=== PATIENT | male | born 1985 | race Caucasian/White ===

== ENCOUNTER 2018-02-25 20:46 | Emergency (ER) | payer OTHER ==
[~2018-02-25] VITALS: Ht 170.2 cm; Wt 83.9 kg
[~2018-02-25 20:46] MED LIST: NOHOMEMEDICATIONS
[2018-02-25] MEDS ORDERED: ZOLOFT (21:00)
[2018-02-25] MEDS ORDERED: RISPERDAL0.5 MG (21:01)
[2018-02-25 21:02] LABS: URINE BILIRUBIN NEGATIVE (Negative); URINE BLOOD NEGATIVE (Negative); URINE CLARITY CLEAR; URINE COLOR STRAW; URINE GLUCOSE-RANDOM NEGATIVE (Negative); URINE KETONES NEGATIVE (Negative); URINE LEUKOCYTES-REFLEX NEGATIVE (Negative); URINE NITRITE-REFLEX NEGATIVE (Negative); URINE PROTEIN NEGATIVE (Negative); URINE SPECIFIC GRAVITY <= 1.005 (1.005-1.030); URINE UROBILINOGEN 0.2 E.U./dl (0.2-1.0)
[2018-02-25 21:09] LABS: ABSOLUTE EOSINOPHILS 0.1 thou/uL (0.0-0.7); ABSOLUTE LYMPHOCYTES 2.6 thou/uL (0.8-5.3); ABSOLUTE MONOCYTES 0.5 thou/uL (0.0-1.2); ABSOLUTE NEUTROPHILS 4.7 thou/uL (1.6-8.1); BASOPHILS 0.3 %; EOSINOPHILS 1.1 %; HEMATOCRIT 42.9 % (42.0-52.0); HEMOGLOBIN 14.6 gm/dL (14.0-18.0); LYMPHOCYTES 32.4 %; MCH 31.8 pg (26.0-34.0); MCHC 34.1 g/dL (28.0-37.0); MCV 93.4 fL (80.0-100.0); MONOCYTES 6.8 %; MPV 6.4 fl. (7.2-11.1); NUCLEATED RBCS 0 /100WBC; PLATELET COUNT* 322 thou/uL (150-400); POLYS 59.4 %; RBC 4.59 mil/uL (4.50-6.00); RDW-CV 13.5 % (10.5-14.5); WBC 7.9 thou/uL (4.0-11.0)
[2018-02-25 21:11] LABS: AMP/METHAMP Negative (Negative); BARBITURATES Negative (Negative); BENZODIAZEPINES Negative (Negative); COCAINE Negative (Negative); METHADONE Negative (Negative); OPIATES Negative (Negative); PCP Negative (Negative); THC POSITIVE (Negative)
[2018-02-25 21:19] LABS: CALCIUM 8.7 mg/dL (8.5-10.1); CREATININE 0.8 mg/dL (0.6-1.3); POTASSIUM 3.6 mmol/L (3.5-5.1)
[2018-02-25 21:24] LABS: ALBUMIN 3.8 g/dL (3.4-5.0); TOTAL BILIRUBIN 0.2 mg/dL (<0.1-1.0); TOTAL PROTEIN 6.8 g/dL (6.4-8.2)
[2018-02-25 21:39] LABS: ALCOHOL 259 mg/dL (<10); SALICYLATE 3.6 mg/dL (2.8-20.0)
[2018-02-25 21:50] LABS: ACETAMINOPHEN < 2 ug/mL (10-30)
[2018-02-26 03:44] VITALS: BP 122/78
== END 2018-02-26 03:45 | disposition home or self-care (01) ==
LOC: M.ERS 20:46
PROVIDERS: Emergency Medicine
DX: F32.9 Major depressive disorder, single episode, unspecified (principal); F17.210 Nicotine dependence, cigarettes, uncomplicated

== ENCOUNTER 2020-05-13 20:19 | Emergency (ER) | payer OTHER ==
[~2020-05-13] VITALS: Ht 172.7 cm; Wt 81.7 kg
[~2020-05-13 20:19] MED LIST changes: +RISPERDAL0.5 MG; +ZOLOFT
[2020-05-13 20:56] LABS: ABSOLUTE EOSINOPHILS 0.2 thou/uL (0.0-0.7); ABSOLUTE LYMPHOCYTES 2.5 thou/uL (0.8-5.3); ABSOLUTE MONOCYTES 0.8 thou/uL (0.0-1.2); ABSOLUTE NEUTROPHILS 4.1 thou/uL (1.6-8.1); BASOPHILS 0.6 %; HEMATOCRIT 43.2 % (42.0-52.0); HEMOGLOBIN 14.9 gm/dL (14.0-18.0); LYMPHOCYTES 32.1 %; MCH 32.6 pg (26.0-34.0); MCHC 34.5 g/dL (28.0-37.0); MCV 94.4 fL (80.0-100.0); MPV 6.4 fl. (7.2-11.1); NUCLEATED RBCS 0 /100WBC; PLATELET COUNT* 346 thou/uL (150-400); POLYS 53.3 %; RBC 4.57 mil/uL (4.50-6.00); RDW-CV 14.4 % (10.5-14.5); WBC 7.7 thou/uL (4.0-11.0)
[2020-05-13 21:07] LABS: ALBUMIN 3.9 g/dL (3.4-5.0); CALCIUM 8.4 mg/dL (8.5-10.1); CREATININE 1.1 mg/dL (0.6-1.3); POTASSIUM 4.3 mmol/L (3.5-5.1); TOTAL BILIRUBIN 0.2 mg/dL (<0.1-1.0); TOTAL PROTEIN 7.2 g/dL (6.4-8.2)
[2020-05-13 22:50] VITALS: BP 95/60
== END 2020-05-13 22:51 | disposition left against medical advice (07) ==
LOC: M.ERS 20:19
PROVIDERS: Emergency Medicine
DX: F10.129 Alcohol abuse with intoxication, unspecified (principal); Y90.8 Blood alcohol level of 240 mg/100 ml or more; F17.210 Nicotine dependence, cigarettes, uncomplicated; Z79.899 Other long term (current) drug therapy

== ENCOUNTER 2020-05-26 00:40 | Emergency (ER) | payer OTHER | END 2020-05-26 07:35 | disposition home or self-care (01) | LOC: M.ERS 00:40 | DX: F10.129 Alcohol abuse with intoxication, unspecified (principal); Y90.8 Blood alcohol level of 240 mg/100 ml or more; F17.210 Nicotine dependence, cigarettes, uncomplicated ==

== ENCOUNTER 2020-05-26 09:26 | Emergency (ER) | payer OTHER ==
[~2020-05-26] VITALS: Ht 170.2 cm; Wt 86.2 kg
[2020-05-26 10:07] LABS: ABSOLUTE EOSINOPHILS 0.2 thou/uL (0.0-0.7); ABSOLUTE LYMPHOCYTES 1.8 thou/uL (0.8-5.3); ABSOLUTE MONOCYTES 0.6 thou/uL (0.0-1.2); ABSOLUTE NEUTROPHILS 2.6 thou/uL (1.6-8.1); EOSINOPHILS 3.2 %; HEMATOCRIT 42.4 % (42.0-52.0); HEMOGLOBIN 14.7 gm/dL (14.0-18.0); LYMPHOCYTES 34.7 %; MCH 33.1 pg (26.0-34.0); MCHC 34.6 g/dL (28.0-37.0); MCV 95.6 fL (80.0-100.0); MPV 6.5 fl. (7.2-11.1); NUCLEATED RBCS 0 /100WBC; PLATELET COUNT* 303 thou/uL (150-400); POLYS 50.1 %; RBC 4.44 mil/uL (4.50-6.00); RDW-CV 14.5 % (10.5-14.5); WBC 5.1 thou/uL (4.0-11.0)
[2020-05-26 10:18] LABS: CALCIUM 7.6 mg/dL (8.5-10.1); CREATININE 0.8 mg/dL (0.6-1.3); POTASSIUM 4.1 mmol/L (3.5-5.1)
[2020-05-26 10:22] LABS: ALBUMIN 3.7 g/dL (3.4-5.0); TOTAL BILIRUBIN 0.2 mg/dL (<0.1-1.0)
--- NOTE | 2020-05-26 17:11 | EKG ---
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[facility] : 1985 Requested By: Ari Arzate Order Number: [id number] MD: De Ybarra Measurements Intervals [place] Rate: 91 P: 63 [place]: 174 QRS: 48 QRSD: 99 T: 65 QT: 387 QTc: 477 Interpretive Statements Sinus rhythm Probable left atrial enlargement Borderline prolonged QT interval No previous ECG available for comparison Electronically Signed On 05-26-2020 17:11:35 CDT by De Ybarra [email or web address] <ELECTRONICALLY SIGNED> By: De Ybarra MD, [facility] 05/26/20 1711 0949 8 De Ybarra MD, FACC /EPI
[2020-05-26 17:21] VITALS: BP 122/86
== END 2020-05-26 17:22 | disposition home or self-care (01) ==
LOC: M.ERS 09:26
PROVIDERS: Emergency Medicine Emergency Medical Services
DX: F10.129 Alcohol abuse with intoxication, unspecified (principal); F17.210 Nicotine dependence, cigarettes, uncomplicated; Y90.8 Blood alcohol level of 240 mg/100 ml or more

== ENCOUNTER 2020-05-27 20:03 | Emergency (ER) | payer OTHER ==
[~2020-05-27] VITALS: Ht 182.9 cm; Wt 90.7 kg
[2020-05-27 20:19] LABS: URINE BILIRUBIN NEGATIVE (Negative); URINE BLOOD NEGATIVE (Negative); URINE CLARITY CLEAR; URINE COLOR YELLOW; URINE GLUCOSE-RANDOM NEGATIVE (Negative); URINE KETONES NEGATIVE (Negative); URINE LEUKOCYTES-REFLEX NEGATIVE (Negative); URINE NITRITE-REFLEX NEGATIVE (Negative); URINE PROTEIN NEGATIVE (Negative); URINE SPECIFIC GRAVITY 1.025 (1.005-1.030); URINE UROBILINOGEN 0.2 E.U./dl (0.2-1.0)
[2020-05-27 20:31] LABS: AMP/METHAMP Negative (Negative); BARBITURATES Negative (Negative); BENZODIAZEPINES POSITIVE (Negative); COCAINE Negative (Negative); METHADONE Negative (Negative); OPIATES Negative (Negative); PCP Negative (Negative); THC POSITIVE (Negative)
[2020-05-27 20:33] LABS: ABSOLUTE BASOPHILS 0.1 thou/uL (0.0-0.2); ABSOLUTE EOSINOPHILS 0.2 thou/uL (0.0-0.7); ABSOLUTE LYMPHOCYTES 2.1 thou/uL (0.8-5.3); ABSOLUTE MONOCYTES 0.6 thou/uL (0.0-1.2); ABSOLUTE NEUTROPHILS 6.2 thou/uL (1.6-8.1); BASOPHILS 0.6 %; EOSINOPHILS 2.1 %; HEMATOCRIT 47.3 % (42.0-52.0); HEMOGLOBIN 16.6 gm/dL (14.0-18.0); LYMPHOCYTES 22.6 %; MCH 32.9 pg (26.0-34.0); MCV 94.1 fL (80.0-100.0); MONOCYTES 6.2 %; MPV 6.1 fl. (7.2-11.1); NUCLEATED RBCS 0 /100WBC; PLATELET COUNT* 358 thou/uL (150-400); POLYS 68.5 %; RBC 5.03 mil/uL (4.50-6.00); RDW-CV 13.9 % (10.5-14.5); WBC 9.1 thou/uL (4.0-11.0)
[2020-05-27 20:40] LABS: CALCIUM 8.3 mg/dL (8.5-10.1); CREATININE 0.8 mg/dL (0.6-1.3); POTASSIUM 4.2 mmol/L (3.5-5.1)
[2020-05-27 20:45] LABS: ALBUMIN 4.3 g/dL (3.4-5.0); TOTAL BILIRUBIN 0.3 mg/dL (<0.1-1.0); TOTAL PROTEIN 8.1 g/dL (6.4-8.2)
[2020-05-27 21:30] VITALS: BP 128/88
== END 2020-05-27 21:30 | disposition home or self-care (01) ==
LOC: M.ERS 20:03
PROVIDERS: Personal Emergency Response Attendant
DX: F10.129 Alcohol abuse with intoxication, unspecified (principal); Y90.8 Blood alcohol level of 240 mg/100 ml or more; F17.210 Nicotine dependence, cigarettes, uncomplicated

== ENCOUNTER 2020-07-14 13:45 | Emergency (ER) | payer OTHER ==
[~2020-07-14] VITALS: Ht 167.6 cm; Wt 81.7 kg
--- NOTE | ~2020-07-14 | EMS ---
[facility] [address] [place] [address] EMS Patient Care Report Name: NATHEN FERNANDEZ Room: [facility]#: [id number] Admission: 07/14/20 Attend Phys: Discharge: Date of : 81 Report #: [id number] THIS REPORT FOR: //name// Report Transmitted: 07/14/2020 13:39 EMS Care Summary [employer] [facility] Incident [id number] @ 07/14/2020 12:59 Incident Location [address] Patient NATHEN FERNANDEZ Male, 34 Years 1985 Patient Address Patient History Alcohol Abuse, Patient Allergies No known allergies, Patient Medications None Reported, Chief Complaint alcoholism Disposition Transported No Lights/[place] Reason No Other Appropriate Choice Transported To [facility] Narrative Dispatched for 34y/o male c/o alcoholism. Pt. states that he is an alcoholic and wants to be taken to a hospital so he can seek treatment. Pt. states he has no other complaints. Pt. states he is homeless at this time. Pt. was transported to [facility] ED for emergency services. Initial Vitals @13:15P: 96,R: 20,BP: 128/84,Pain: 0/10,GCS: 15,SpO2: 95,Revised Trauma: 12, [address] [address] EMS Patient Care Report Name: NATHEN FERNANDEZ Room: [facility]#: [id number] Admission: 07/14/20 Attend Phys: Discharge: Date of : 81 Report #: [id number] Assessments @13:10MENTAL:Person Oriented,Time Oriented,Event Oriented,Place Oriented,SKIN:No Abnormalities,HEENT:Head/Face: No Abnormalities,Eyes: No Abnormalities,Neck/Airway: No Abnormalities,LUNG SOUNDS:General: No Abnormalities,Left Upper: No Abnormalities,Right Upper: No Abnormalities,Left Lower: No Abnormalities,Right Lower: No Abnormalities,ABDOMEN:General: No Abnormalities,Left Upper: No Abnormalities,Right Upper: No Abnormalities,Left Lower: No Abnormalities,Right Lower: No Abnormalities,PELVIS//GI:No Abnormalities,EXTREMITIES:Left Arm: No Abnormalities,Right Arm: No Abnormalities,Left Leg: No Abnormalities,Right Leg: No Abnormalities,PULSE:Radial: 2+ Normal,NEURO:No Abnormalities, Impression Alcohol use Timeline 12:55,Call Received 12:59,Dispatched 13:00,En Route 13:02,Initial Responder On Scene 13:02,On Scene 13:03,At Patient 13:12,Depart Scene 13:15,BP: 128/84 M,PULSE: 96,RR: 20 R,SPO2: 95 Ox,ETCO2: ,BG: ,PAIN: 0,GCS: 15, 13:43,At Destination 14:12,Call Closed 14:12,Transfer Patient Disclaimer v1.1 Copyright 2020 [employer] This EMS Care Summary contains data elements from the applicable legal record (which may be displayed differently). It is designed to provide pertinent information for the following purposes: continuity of care, clinical quality, and state data reporting. The complete legal record is available to ED staff and administrators of the receiving hospital in [facility]'s Patient Tracker. All data is provided "as is."
[2020-07-14 14:45] LABS: ABSOLUTE LYMPHOCYTES 1.8 thou/uL (0.8-5.3); ABSOLUTE MONOCYTES 0.3 thou/uL (0.0-1.2); BASOPHILS 0.8 %; EOSINOPHILS 0.9 %; HEMOGLOBIN 15.8 gm/dL (14.0-18.0); LYMPHOCYTES 43.7 %; MCH 32.5 pg (26.0-34.0); MCHC 35.1 g/dL (28.0-37.0); MCV 92.8 fL (80.0-100.0); MONOCYTES 6.3 %; MPV 6.1 fl. (7.2-11.1); NUCLEATED RBCS 0 /100WBC; PLATELET COUNT* 303 thou/uL (150-400); POLYS 48.3 %; RBC 4.85 mil/uL (4.50-6.00); WBC 4.1 thou/uL (4.0-11.0)
[2020-07-14 14:57] LABS: APTT 26.6 Seconds (25.0-31.3); PROTIME 10.2 Seconds (9.20-11.50)
[2020-07-14 14:58] LABS: CALCIUM 7.7 mg/dL (8.5-10.1); CREATININE 0.9 mg/dL (0.6-1.3); POTASSIUM 3.7 mmol/L (3.5-5.1)
[2020-07-14 14:59] LABS: ALCOHOL 274 mg/dL (<10); SALICYLATE 3.8 mg/dL (2.8-20.0)
[2020-07-14 15:00] LABS: ACETAMINOPHEN < 2 ug/mL (10-30)
[2020-07-14 15:02] LABS: PHOSPHORUS* 2.5 mg/dL (2.5-4.9); TOTAL BILIRUBIN 0.4 mg/dL (<0.1-1.0); TOTAL PROTEIN 7.2 g/dL (6.4-8.2)
[2020-07-14 17:20] LABS: URINE BILIRUBIN NEGATIVE (Negative); URINE BLOOD NEGATIVE (Negative); URINE CLARITY CLEAR; URINE COLOR YELLOW; URINE GLUCOSE-RANDOM NEGATIVE (Negative); URINE KETONES NEGATIVE (Negative); URINE LEUKOCYTES-REFLEX NEGATIVE (Negative); URINE NITRITE-REFLEX NEGATIVE (Negative); URINE PROTEIN NEGATIVE (Negative); URINE UROBILINOGEN 0.2 E.U./dl (0.2-1.0)
[2020-07-14 17:29] LABS: AMP/METHAMP Negative (Negative); BARBITURATES Negative (Negative); BENZODIAZEPINES Negative (Negative); COCAINE Negative (Negative); METHADONE Negative (Negative); OPIATES Negative (Negative); PCP Negative (Negative); THC POSITIVE (Negative)
[2020-07-15 00:25] VITALS: BP 132/76
== END 2020-07-15 00:25 | disposition home or self-care (01) ==
LOC: M.ERS 13:45
PROVIDERS: Nurse Practitioner Family
DX: F10.129 Alcohol abuse with intoxication, unspecified (principal); Y90.8 Blood alcohol level of 240 mg/100 ml or more; F32.9 Major depressive disorder, single episode, unspecified; Z20.828 Contact with and (suspected) exposure to other viral communicable diseases; F17.210 Nicotine dependence, cigarettes, uncomplicated; Z79.899 Other long term (current) drug therapy

== ENCOUNTER 2020-07-17 05:52 | Emergency (ER) | payer OTHER ==
[~2020-07-17] VITALS: Ht 167.6 cm; Wt 81.7 kg
--- NOTE | ~2020-07-17 | EMS ---
[facility] [address] [place] [address] EMS Patient Care Report Name: NATHEN FERNANDEZ [id number] Admission: 07/17/20 Attend Phys: Discharge: Date of : 81 Report #: [id number] THIS REPORT FOR: //name// Report Transmitted: 07/17/2020 05:17 EMS Care Summary [facility] Incident [id number] @ 07/17/2020 05:16 Incident Location [address] [id number] Patient NATHEN FERNANDEZ Male, 34 Years 1985 Patient Address [address] [place] [address] Patient History Bipolar disorder, unspecified,Anxiety disorder, unspecified,Schizoaffective Disorder,Alcohol related disorders, Patient Allergies No known allergies, Chief Complaint Vomiting Disposition Transported No Lights/[place] Dis[place] Reason Unknown Problem/Person Down Transported To [facility] Narrative Dispatched to address noted for vomiting male patient. [facility] en route at time noted and arrived on scene after staging. Arrived after [employer] and found male patient sitting on the floor of the gas station lobby. Patient was alert and oriented and stated that he has been vomiting. He stated a chronic history of alcohol use and he has not had a drink in 6 hours. Patient has been vomiting [address] [address] EMS Patient Care Report Name: NATHEN FERNANDEZ Room: [facility]#: [id number] Admission: 07/17/20 Attend Phys: Discharge: Date of : 81 Report #: [id number] for the last 2 days and was seen at [facility] and transferred to a rehabilitation center not long ago. Patient wanted to be [facility] at the time, due to high volume status. Patient was assisted to ambulance and had a steady gate. Patient stated he normally drinks 6 tall beers a day. Once in ambulance, vitals where taken and 4 lead obtained with blood glucose. Vitals where within normal limits and oral zofran was given at time noted. While en route, vitals where taken again and nothing eventful as noted. Patient was given an emesis bag for his nausea. Radio report given at time noted. Arrived and took patient to room. Patient was moved to bed and RN was given verbal report. RN signed for patient and patient signed for self. END REPORT EMT-P Andrew Christensen Initial Vitals @05:25SpO2: 98, @05:26SpO2: 100, @05:27SpO2: 100, @05:28SpO2: 100, @05:33SpO2: 99, @05:38SpO2: 99, @05:42SpO2: 95, @05:43SpO2: 94, @05:27 @05:26P: 74,R: 16,BP: 118/72, @05:42P: 70,R: 16,BP: 123/72, @05:26GCS: 15, @05:42GCS: 15, @05:33 @05:28Glucose: 122, Assessments @05:23MENTAL:SKIN:HEENT:LUNG SOUNDS:ABDOMEN:PELVIS//GI:EXTREMITIES:PULSE:NEURO: Impression Alcohol use Procedures @05:28Ondansetron - 8.000 Milligrams (mg) - OralResponse: Unchanged@05:273-Lead ECGResponse: UnchangedSucceeded Timeline 05:23,Call Received 05:13,Dispatch Notified 05:13,Psap Call 05:16,Dispatched 05:16,[place] [address] EMS Patient Care Report Name: NATHEN FERNANDEZ Room: [facility]#: [id number] Admission: 07/17/20 Attend Phys: Discharge: Date of : 81 Report #: [id number] 05:21,On Scene 05:23,At Patient 05:25,BP: / M,PULSE: ,RR: R,SPO2: 98 Ox,ETCO2: ,BG: ,PAIN: ,GCS: , 05:26,BP: / M,PULSE: ,RR: R,SPO2: 100 Ox,ETCO2: ,BG: ,PAIN: ,GCS: , 05:26,BP: 118/72 M,PULSE: 74,RR: 16 R,SPO2: Ox,ETCO2: ,BG: ,PAIN: ,GCS: , 05:26,BP: / M,PULSE: ,RR: R,SPO2: Ox,ETCO2: ,BG: ,PAIN: ,GCS: 15, 05:27,3-Lead ECG,Response: UnchangedSucceeded, 05:27,BP: / M,PULSE: ,RR: R,SPO2: 100 Ox,ETCO2: ,BG: ,PAIN: ,GCS: , 05:27,BP: / M,PULSE: ,RR: R,SPO2: Ox,ETCO2: ,BG: ,PAIN: ,GCS: , 05:28,BP: / M,PULSE: ,RR: R,SPO2: 100 Ox,ETCO2: ,BG: ,PAIN: ,GCS: , 05:28,BP: / M,PULSE: ,RR: R,SPO2: Ox,ETCO2: ,B,PAIN: ,GCS: , 05:28,Ondansetron - 8.000 Milligrams (mg) - Oral,Response: Unchanged 05:31,Depart Scene 05:33,BP: / M,PULSE: ,RR: R,SPO2: 99 Ox,ETCO2: ,BG: ,PAIN: ,GCS: , 05:33,BP: / M,PULSE: ,RR: R,SPO2: Ox,ETCO2: ,BG: ,PAIN: ,GCS: , 05:38,BP: / M,PULSE: ,RR: R,SPO2: 99 Ox,ETCO2: ,BG: ,PAIN: ,GCS: , 05:42,BP: / M,PULSE: ,RR: R,SPO2: 95 Ox,ETCO2: ,BG: ,PAIN: ,GCS: , 05:42,BP: 123/72 M,PULSE: 70,RR: 16 R,SPO2: Ox,ETCO2: ,BG: ,PAIN: ,GCS: , 05:42,BP: / M,PULSE: ,RR: R,SPO2: Ox,ETCO2: ,BG: ,PAIN: ,GCS: 15, 05:43,BP: / M,PULSE: ,RR: R,SPO2: 94 Ox,ETCO2: ,BG: ,PAIN: ,GCS: , 05:51,At Destination 05:59,Call Closed Disclaimer v1.1 Copyright 2020 [employer] This EMS Care Summary contains data elements from the applicable legal record (which may be displayed differently). It is designed to provide pertinent information for the following purposes: continuity of care, clinical quality, and state data reporting. The complete legal record is available to ED staff and administrators of the receiving hospital in [facility]'s Patient Tracker. All data is provided "as is."
[2020-07-17 06:10] LABS: ABSOLUTE BASOPHILS 0.1 thou/uL (0.0-0.2); ABSOLUTE LYMPHOCYTES 1.1 thou/uL (0.8-5.3); ABSOLUTE MONOCYTES 0.5 thou/uL (0.0-1.2); ABSOLUTE NEUTROPHILS 9.4 thou/uL (1.6-8.1); BASOPHILS 0.5 %; EOSINOPHILS 0.4 %; HEMATOCRIT 46.7 % (42.0-52.0); LYMPHOCYTES 10.2 %; MCH 32.2 pg (26.0-34.0); MCHC 34.2 g/dL (28.0-37.0); MCV 94.3 fL (80.0-100.0); MONOCYTES 4.3 %; MPV 6.6 fl. (7.2-11.1); NUCLEATED RBCS 0 /100WBC; PLATELET COUNT* 278 thou/uL (150-400); POLYS 84.6 %; RBC 4.95 mil/uL (4.50-6.00); RDW-CV 12.9 % (10.5-14.5); WBC 11.1 thou/uL (4.0-11.0)
[2020-07-17 06:18] LABS: ANION GAP 12 mmol/L (7-16); BUN 14 mg/dL (7-18); CALCIUM 7.8 mg/dL (8.5-10.1); CHLORIDE 102 mmol/L (98-107); CO2 24 mmol/L (21-32); CREATININE 0.7 mg/dL (0.6-1.3); GLUCOSE 75 mg/dL (70-99); SODIUM 138 mmol/L (136-145)
[2020-07-17 06:22] LABS: ALBUMIN 4.2 g/dL (3.4-5.0); ALKALINE PHOSPHATASE 66 U/L (46-116); AMMONIA < 10 umol/L (11-32); LIPASE 192 U/L (73-393); SGOT 83 U/L (15-37); SGPT 93 U/L (30-65); TOTAL BILIRUBIN 0.3 mg/dL (<0.1-1.0); TOTAL PROTEIN 7.8 g/dL (6.4-8.2)
[2020-07-17] MEDS ORDERED: ZOFRAN ODT4 MG PO (07:19)
[2020-07-17 08:03] VITALS: BP 102/65
--- NOTE | 2020-07-17 13:07 | EKG ---
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
== END 2020-07-17 08:04 | disposition home or self-care (01) ==
LOC: M.ERS 05:52
PROVIDERS: Emergency Medicine
DX: F10.920 Alcohol use, unspecified with intoxication, uncomplicated (principal); R11.2 Nausea with vomiting, unspecified; R10.13 Epigastric pain; R10.12 Left upper quadrant pain; F17.210 Nicotine dependence, cigarettes, uncomplicated; Y90.9 Presence of alcohol in blood, level not specified

== ENCOUNTER 2020-12-31 16:45 | Emergency (ER) | payer MEDICAID ==
[~2020-12-31] VITALS: Ht 167.6 cm; Wt 72.6 kg
[~2020-12-31 16:45] MED LIST changes: +ZOFRAN ODT4 MG PO
[2020-12-31 17:06] LABS: URINE BILIRUBIN NEGATIVE (Negative); URINE BLOOD NEGATIVE (Negative); URINE CLARITY CLEAR; URINE COLOR YELLOW; URINE GLUCOSE-RANDOM NEGATIVE (Negative); URINE KETONES NEGATIVE (Negative); URINE LEUKOCYTES-REFLEX NEGATIVE (Negative); URINE NITRITE-REFLEX NEGATIVE (Negative); URINE PROTEIN NEGATIVE (Negative); URINE SPECIFIC GRAVITY <= 1.005 (1.005-1.030); URINE UROBILINOGEN 0.2 E.U./dl (0.2-1.0)
[2020-12-31 17:08] LABS: ABSOLUTE EOSINOPHILS 0.1 thou/uL (0.0-0.7); ABSOLUTE LYMPHOCYTES 2.8 thou/uL (0.8-5.3); ABSOLUTE MONOCYTES 0.7 thou/uL (0.0-1.2); ABSOLUTE NEUTROPHILS 4.7 thou/uL (1.6-8.1); BASOPHILS 0.5 %; EOSINOPHILS 1.2 %; HEMATOCRIT 46.6 % (42.0-52.0); HEMOGLOBIN 15.9 gm/dL (14.0-18.0); LYMPHOCYTES 33.9 %; MCH 32.1 pg (26.0-34.0); MCHC 34.2 g/dL (28.0-37.0); MCV 93.9 fL (80.0-100.0); MPV 6.6 fl. (7.2-11.1); NUCLEATED RBCS 0 /100WBC; PLATELET COUNT* 293 thou/uL (150-400); POLYS 56.4 %; RBC 4.96 mil/uL (4.50-6.00); RDW-CV 13.2 % (10.5-14.5); WBC 8.3 thou/uL (4.0-11.0)
[2020-12-31 17:12] LABS: AMP/METHAMP Negative (Negative); BARBITURATES Negative (Negative); BENZODIAZEPINES Negative (Negative); COCAINE Negative (Negative); METHADONE Negative (Negative); OPIATES Negative (Negative); PCP Negative (Negative); THC POSITIVE (Negative)
[2020-12-31 17:29] LABS: CREATININE 0.7 mg/dL (0.6-1.3); POTASSIUM 4.2 mmol/L (3.5-5.1)
[2020-12-31 17:31] LABS: ALCOHOL 303 mg/dL (<10)
[2020-12-31 17:32] LABS: ACETAMINOPHEN < 2 ug/mL (10-30)
[2020-12-31 17:34] LABS: ALBUMIN 3.9 g/dL (3.4-5.0); TOTAL BILIRUBIN 0.3 mg/dL (<0.1-1.0); TOTAL PROTEIN 7.1 g/dL (6.4-8.2)
[2021-01-01 18:23] VITALS: BP 130/96
== END 2021-01-01 18:26 | disposition home or self-care (01) ==
LOC: M.ERS 16:45
PROVIDERS: Emergency Medicine Emergency Medical Services
DX: F10.129 Alcohol abuse with intoxication, unspecified (principal); Y90.8 Blood alcohol level of 240 mg/100 ml or more; R45.851 Suicidal ideations; Z20.822 Contact with and (suspected) exposure to COVID-19

== ENCOUNTER 2021-01-04 19:41 | Emergency (ER) | payer MEDICAID ==
[~2021-01-04] VITALS: Ht 167.6 cm; Wt 86.2 kg
[2021-01-04 20:01] LABS: ABSOLUTE EOSINOPHILS 0.2 thou/uL (0.0-0.7); ABSOLUTE MONOCYTES 0.6 thou/uL (0.0-1.2); ABSOLUTE NEUTROPHILS 3.1 thou/uL (1.6-8.1); BASOPHILS 0.5 %; EOSINOPHILS 3.2 %; HEMATOCRIT 46.9 % (42.0-52.0); HEMOGLOBIN 16.1 gm/dL (14.0-18.0); LYMPHOCYTES 43.5 %; MCH 31.9 pg (26.0-34.0); MCHC 34.2 g/dL (28.0-37.0); MCV 93.1 fL (80.0-100.0); MONOCYTES 8.5 %; MPV 6.5 fl. (7.2-11.1); NUCLEATED RBCS 0 /100WBC; PLATELET COUNT* 326 thou/uL (150-400); POLYS 44.3 %; RBC 5.04 mil/uL (4.50-6.00); RDW-CV 13.3 % (10.5-14.5)
[2021-01-04 20:10] LABS: CALCIUM 8.7 mg/dL (8.5-10.1); CREATININE 0.9 mg/dL (0.6-1.3)
[2021-01-04 20:15] LABS: ALBUMIN 3.9 g/dL (3.4-5.0); TOTAL BILIRUBIN 0.2 mg/dL (<0.1-1.0); TOTAL PROTEIN 7.2 g/dL (6.4-8.2)
[2021-01-04 21:58] VITALS: BP 112/68
--- NOTE | 2021-01-05 11:12 | EKG ---
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1985 Requested By: Melinda Shukla Order Number: [id number] MD: De Ybarra Measurements Intervals [place] Rate: 86 P: 54 PA: 162 QRS: 2 QRSD: 102 T: 32 QT: 379 QTc: 454 Interpretive Statements Sinus rhythm ST elev, probable normal early repol pattern Baseline wander in lead(s) V1 No previous ECG available for comparison Electronically Signed On 01-05-2021 11:11:59 SEARCH ENGINE OPTIMIZATION CONSULTANT by De Ybarra [email or web address] <ELECTRONICALLY SIGNED> By: De Ybarra MD, FACC 01/05/21 1111 24 24 De Ybarra MD, [facility] /EPI
== END 2021-01-04 21:58 | disposition home or self-care (01) ==
LOC: M.ERS 19:41
PROVIDERS: Emergency Medicine
DX: F10.129 Alcohol abuse with intoxication, unspecified (principal); Y90.8 Blood alcohol level of 240 mg/100 ml or more

== ENCOUNTER 2021-01-10 14:00 | Emergency (ER) | payer MEDICAID ==
[~2021-01-10] VITALS: Ht 167.6 cm; Wt 88.5 kg
[2021-01-10 14:24] LABS: ABSOLUTE LYMPHOCYTES 2.3 thou/uL (0.8-5.3); ABSOLUTE MONOCYTES 0.4 thou/uL (0.0-1.2); ABSOLUTE NEUTROPHILS 4.7 thou/uL (1.6-8.1); BASOPHILS 0.6 %; EOSINOPHILS 0.3 %; HEMATOCRIT 46.8 % (42.0-52.0); HEMOGLOBIN 16.1 gm/dL (14.0-18.0); LYMPHOCYTES 31.5 %; MCH 31.9 pg (26.0-34.0); MCHC 34.5 g/dL (28.0-37.0); MCV 92.4 fL (80.0-100.0); MONOCYTES 5.2 %; MPV 6.4 fl. (7.2-11.1); NUCLEATED RBCS 0 /100WBC; PLATELET COUNT* 297 thou/uL (150-400); POLYS 62.4 %; RBC 5.06 mil/uL (4.50-6.00); RDW-CV 13.3 % (10.5-14.5); WBC 7.4 thou/uL (4.0-11.0)
[2021-01-10 14:42] LABS: CALCIUM 8.4 mg/dL (8.5-10.1); CREATININE 0.9 mg/dL (0.6-1.3); POTASSIUM 4.2 mmol/L (3.5-5.1)
[2021-01-10 14:47] LABS: ALBUMIN 4.1 g/dL (3.4-5.0); TOTAL BILIRUBIN 0.3 mg/dL (<0.1-1.0); TOTAL PROTEIN 7.7 g/dL (6.4-8.2)
[2021-01-10 14:57] LABS: ALCOHOL 342 mg/dL (<10); SALICYLATE 2.9 mg/dL (2.8-20.0)
[2021-01-10 14:58] LABS: ACETAMINOPHEN < 2 ug/mL (10-30)
[2021-01-10 16:11] LABS: URINE BILIRUBIN NEGATIVE (Negative); URINE BLOOD NEGATIVE (Negative); URINE CLARITY CLEAR; URINE COLOR YELLOW; URINE GLUCOSE-RANDOM NEGATIVE (Negative); URINE KETONES NEGATIVE (Negative); URINE LEUKOCYTES-REFLEX NEGATIVE (Negative); URINE NITRITE-REFLEX NEGATIVE (Negative); URINE PROTEIN NEGATIVE (Negative); URINE SPECIFIC GRAVITY 1.025 (1.005-1.030); URINE UROBILINOGEN 0.2 E.U./dl (0.2-1.0)
[2021-01-10 16:18] LABS: AMP/METHAMP Negative (Negative); BARBITURATES Negative (Negative); BENZODIAZEPINES Negative (Negative); COCAINE Negative (Negative); METHADONE Negative (Negative); OPIATES Negative (Negative); PCP Negative (Negative); THC POSITIVE (Negative)
[2021-01-11 14:17] VITALS: BP 145/88
== END 2021-01-11 14:20 | disposition home or self-care (01) ==
LOC: M.ERS 14:00
PROVIDERS: Nurse Practitioner Family
DX: F10.129 Alcohol abuse with intoxication, unspecified (principal); Y90.8 Blood alcohol level of 240 mg/100 ml or more; R45.851 Suicidal ideations; Z20.822 Contact with and (suspected) exposure to COVID-19

== ENCOUNTER 2021-02-01 10:47 | Emergency (ER) | payer MEDICAID ==
[~2021-02-01] VITALS: Ht 167.6 cm; Wt 77.1 kg
[2021-02-01] MEDS ORDERED: DOXYCYCLINE 10100 M2 PO (11:05)
[2021-02-01 11:27] LABS: URINE BILIRUBIN NEGATIVE (Negative); URINE BLOOD NEGATIVE (Negative); URINE CLARITY CLEAR; URINE COLOR YELLOW; URINE GLUCOSE-RANDOM NEGATIVE (Negative); URINE KETONES NEGATIVE (Negative); URINE LEUKOCYTES-REFLEX NEGATIVE (Negative); URINE NITRITE-REFLEX NEGATIVE (Negative); URINE PROTEIN NEGATIVE (Negative); URINE SPECIFIC GRAVITY >= 1.030 (1.005-1.030); URINE UROBILINOGEN 0.2 E.U./dl (0.2-1.0)
[2021-02-01 11:36] VITALS: BP 133/95
== END 2021-02-01 11:37 | disposition home or self-care (01) ==
LOC: M.ERS 10:47
PROVIDERS: Emergency Medicine Emergency Medical Services
DX: N34.2 Other urethritis (principal); F17.210 Nicotine dependence, cigarettes, uncomplicated

== ENCOUNTER 2021-03-07 18:59 | Emergency (ER) | payer MEDICAID ==
[~2021-03-07] VITALS: Ht 167.6 cm; Wt 86.6 kg
[~2021-03-07 18:59] MED LIST changes: +DOXYCYCLINE 10100 M2 PO
[2021-03-08 06:15] VITALS: BP 119/83
== END 2021-03-08 06:15 | disposition home or self-care (01) ==
LOC: M.ERS 18:59
DX: F10.129 Alcohol abuse with intoxication, unspecified (principal); Y90.9 Presence of alcohol in blood, level not specified; F17.210 Nicotine dependence, cigarettes, uncomplicated

== ENCOUNTER 2021-03-08 20:04 | Emergency (ER) | payer MEDICAID ==
[~2021-03-08] VITALS: Ht 172.7 cm; Wt 90.7 kg
[2021-03-09 04:02] LABS: HEMATOCRIT 44.3 % (42.0-52.0); MCH 31.3 pg (26.0-34.0); MCHC 33.9 g/dL (28.0-37.0); MCV 92.2 fL (80.0-100.0); MPV 5.9 fl. (7.2-11.1); RBC 4.8 mil/uL (4.50-6.00); RDW-CV 13.2 % (10.5-14.5); WBC 4.7 thou/uL (4.0-11.0)
[2021-03-09 04:11] LABS: CALCIUM 7.8 mg/dL (8.5-10.1); CREATININE 0.7 mg/dL (0.6-1.3); POTASSIUM 3.6 mmol/L (3.5-5.1)
[2021-03-09 04:16] LABS: ALBUMIN 3.3 g/dL (3.4-5.0); TOTAL BILIRUBIN 0.2 mg/dL (<0.1-1.0); TOTAL PROTEIN 6.3 g/dL (6.4-8.2)
[2021-03-09 06:10] VITALS: BP 130/70
== END 2021-03-09 06:10 | disposition home or self-care (01) ==
LOC: M.ERS 20:04
PROVIDERS: Personal Emergency Response Attendant
DX: S00.83XA Contusion of other part of head, initial encounter (principal); F10.129 Alcohol abuse with intoxication, unspecified; Y90.6 Blood alcohol level of 120-199 mg/100 ml; F17.210 Nicotine dependence, cigarettes, uncomplicated; W18.39XA Other fall on same level, initial encounter; Y93.89 Activity, other specified; Y92.89 Other specified places as the place of occurrence of the external cause; Y99.8 Other external cause status

== ENCOUNTER 2021-05-05 19:17 | Emergency (ER) | payer MEDICAID ==
[~2021-05-05] VITALS: Ht 188 cm; Wt 83.0 kg
[2021-05-05 22:29] VITALS: BP 112/85
== END 2021-05-05 22:31 | disposition home or self-care (01) ==
LOC: M.ERS 19:17
DX: F10.129 Alcohol abuse with intoxication, unspecified (principal); Y90.9 Presence of alcohol in blood, level not specified; F17.210 Nicotine dependence, cigarettes, uncomplicated

== ENCOUNTER 2021-05-06 08:19 | Emergency (ER) | payer MEDICAID ==
[~2021-05-06] VITALS: Ht 167.6 cm; Wt 81.7 kg
[2021-05-06 08:21] VITALS: BP 120/89
== END 2021-05-06 10:10 | disposition home or self-care (01) ==
LOC: M.ERS 08:19
DX: F10.920 Alcohol use, unspecified with intoxication, uncomplicated (principal); F17.210 Nicotine dependence, cigarettes, uncomplicated

== ENCOUNTER 2021-08-25 14:33 | Emergency (ER) | payer MEDICAID ==
[~2021-08-25] VITALS: Ht 172.7 cm; Wt 68.0 kg
[2021-08-25 14:39] VITALS: BP 101/62
== END 2021-08-25 16:27 | disposition home or self-care (01) ==
LOC: M.ERS 14:33
DX: F10.920 Alcohol use, unspecified with intoxication, uncomplicated (principal); F17.210 Nicotine dependence, cigarettes, uncomplicated; Y90.6 Blood alcohol level of 120-199 mg/100 ml

== ENCOUNTER 2021-09-24 19:39 | Emergency (ER) | payer MEDICAID ==
[~2021-09-24] VITALS: Ht 167.6 cm; Wt 77.1 kg
[2021-09-24 19:42] VITALS: BP 102/65
== END 2021-09-24 20:58 | disposition home or self-care (01) ==
LOC: M.ERS 19:39
DX: F10.129 Alcohol abuse with intoxication, unspecified (principal); R45.6 Violent behavior; F17.210 Nicotine dependence, cigarettes, uncomplicated